=== PATIENT | male | born 1965 | race Caucasian/White ===

== ENCOUNTER 2024-03-24 16:29 | Emergency (ER) | payer OTHER ==
[~2024-03-24] VITALS: Ht 172.7 cm; Wt 88.5 kg
[~2024-03-24 16:29] MED LIST: CEPH500 PO; CIPRSO LEFTEYE; DOCU100 PO; GERD MED; HYDACE25S PR; HYDACE5 PO; IBUP800 PO; NAPR500 PO; Norco 5-325 Ta1 EACH PO; PENVK500 PO; Percocet 5-3251 EACH PO; TRAM50 PO; Ultram50 MG PO; Veetids 500500 MG PO
[2024-03-24] MEDS ORDERED: Ketorolac Tromethamine 30mg Vial IV ONE (19:20)
[2024-03-24] MEDS ORDERED: LevoFLOXacin 500MG/D5W 100ML 100 ML IV ONE (19:20)
[2024-03-24] MEDS ORDERED: Acetaminophen 325 MG TABLET PO ONE (19:20)
[2024-03-24] MEDS ORDERED: NS 1,000 ML IV SCH (19:20)
[2024-03-24] MEDS ORDERED: FentaNYL Citrate 50 MCG/ML 2 ML Injection IV ONE (19:50)
[2024-03-24 19:58] LABS: BASOPHILS ABSOLUTE AUTO 0.08 K/mm3 (0.00-0.23); BASOPHILS PERCENT AUTO 1 % (0-2); EOSINOPHILS ABSOLUTE AUTO 0.03 K/mm3 (0.00-0.68); EOSINOPHILS PERCENT AUTO 0 % (0-6); Hematocrit 46.4 % (37.0-53.0); Hemoglobin 15.5 g/dL (13.5-17.5); IMMATURE GRAN ABSOLUTE AUTO 0.02 K/mm3 (0.00-0.10); IMMATURE GRAN PERCENT AUTO 0 % (0-1); LYMPHOCYTES ABSOLUTE AUTO 1.39 K/mm3 (0.84-5.20); LYMPHOCYTES PERCENT AUTO 13 % (21-46); MONOCYTES ABSOLUTE AUTO 0.73 K/mm3 (0.16-1.47); MONOCYTES PERCENT AUTO 7 % (4-13); Mean Corpuscular HGB 29.3 pg (26.0-34.0); Mean Corpuscular HGB Conc 33.4 g/dL (31.5-36.5); Mean Corpuscular Volume 88 fL (80-100); Mean Platelet Volume 9.7 fL (9.1-12.4); NEUTROPHILS ABSOLUTE AUTO 8.53 K/mm3 (1.96-9.15); NEUTROPHILS PERCENT AUTO 79 % (41-73); Platelet Count 255 K/mm3 (150-400); RDW Coefficient Variation 12.8 % (11.7-14.2); RDW Standard Deviation 41.1 fL (35.1-46.3); Red Blood Cell Count 5.29 M/mm3 (4.30-5.90); White Blood Cell Count 10.78 K/mm3 (4.00-11.30)
[2024-03-24] MEDS ORDERED: HYDROmorphone HCl/Pf 1MG SYR IV ONE (20:20)
[2024-03-24 20:35] LABS: Albumin, Blood 3.8 g/dL (3.4-5.0); Bilirubin, Total 0.7 mg/dL (0.1-1.0); Bun/Creatinine Ratio 16.2 (12.0-20.0); Calcium, Blood 9.5 mg/dL (8.5-10.1); Creatinine, Blood 0.74 mg/dL (0.60-1.20); Potassium, Blood 3.9 mmol/L (3.5-5.5); Total Protein, Blood 7.8 g/dL (6.4-8.2)
[2024-03-24 22:05] LABS: Source, Urine Clean Catch
[2024-03-24 22:09] LABS: Bilirubin, Urine Neg (Neg); Blood, Urine 4+ (Neg); Glucose Qualitative, Urine Neg (Neg); Ketones, Urine Neg (Neg); Leukocyte Esterase, Urine 3+ (Neg); Nitrite, Urine Neg (Neg); Protein, Urine 2+ (Neg); Specific Gravity, Urine 1.015 (1.003-1.022); Urobilinogen, Urine NORM (Normal)
[2024-03-24 22:16] LABS: Appearance, Urine Cloudy (Clear); Color, Urine Yellow (P-Yellow); White Blood Cells, Urine TNTC /hpf (0-5)
[2024-03-24 22:17] LABS: Amorphous Heavy (0-Heavy); Bacteria Many /hpf; Squamous Epithelial Cells Rare /hpf (Few)
[2024-03-24] MEDS ORDERED: LEVFLO500 PO (22:39)
[2024-03-24 22:53] VITALS: BP 135/87
== END 2024-03-24 22:53 | disposition home or self-care (01) ==
LOC: ER 16:29
PROVIDERS: Physician Assistant; Student in an Organized Health Care Education/Training Program
DX: N45.1 Epididymitis (principal); K40.90 Unilateral inguinal hernia, without obstruction or gangrene, not specified as recurrent; N39.0 Urinary tract infection, site not specified; F17.210 Nicotine dependence, cigarettes, uncomplicated
CPT/HCPCS: 51798; 76870; 80053; 81001; 85025; 87086; 96365; 96375; 99284-25; A9270; J1170; J1885; J1956; J3010; J7030